=== PATIENT | female | born 1955 | race Caucasian/White ===

== ENCOUNTER 2016-08-03 22:54 | Emergency (ER) | payer OTHER ==
[~2016-08-03] VITALS: Ht 172.7 cm; Wt 60.8 kg
[~2016-08-03 22:54] MED LIST: AMOX-CLAV 875-1 EACH PO; AMOXICILLIN500 M3 PO; BACTRIM DS TAB1 EACH PO; BIOTIN1 M1 PO; KEFLEX500 M1 PO; MULTI-DAY VITA1 EACH PO; PANTOPRAZOLE SO40 M1 PO; PERCOCET 5-3251 EACH PO; TUMERIC PO
--- NOTE | 2016-08-03 23:42 | ED SKIN/ALLERGY COMPLAINT ---
History of Present Illness General Chief Complaint: Animal/Insect Bite Stated Complaint: PT HAS A BUG BITE ON HER BUTT AND INFECTED Source: patient Exam Limitations: no limitations Vital Signs & Intake/Output Vital Signs & Intake/Output Vital Signs Date Time Temp Pulse Resp B/P B/P Pulse O2 O2 Flow FiO2 Mean Ox Delivery Rate 08/03 2300 97.4 72 16 149/77 98 Room Air ED Intake and Output 08/04 0000 08/03 1200 Intake Total Output Total Balance Patient 134 lb Weight Allergies Coded Allergies: prednisone (Severe, ANAPHYLAXIS 08/22/15) Reconcile Medications Amoxicillin/Clavulanate Potass (Amox-Clav 875-125 MG Tablet) 1 EACH TABLET 875 MG PO Q12 CELLULITIS Biotin 1 MG TABLET 1 TAB PO DAILY SUPPLEMENT (Reported) Cephalexin (Keflex) 500 MG CAPSULE 1 CAP PO TID cellulitis Ibuprofen 600 MG TABLET 1 TAB PO TID PRN pain with food Multivitamin (Multi-Day Vitamins) 1 EACH TABLET 1 TAB PO DAILY SUPPLEMENT ( Reported) Oxycodone HCl/Acetaminophen (Percocet 5-325 MG Tablet) 1 EACH TABLET 1 TAB PO BID PAIN Pantoprazole Sodium 40 MG TABLET.DR 1 TAB PO DAILY GI (Reported) Sulfamethoxazole/Trimethoprim (Bactrim Ds Tablet) 800 MG-160 MG TABLET 1 TAB PO BID cellulitis/infection Triage Note: PT STATES THAT SATURDAY SHE STARTED WITH WHAT SHE THOUGHT WAS A BUG BITE TO HER R BUTTOCKS, STATES THAT IT WAS ITCHY, AND NOW STATES THAT SHE NOTED THAT ITS STILL ITCHY BUT IT RED AND HOT TO TOUCH NOW. PT NOTED WITH WHAT LOOKS LIKE SCRATCH SUE , AREA IS NOT RAISED Triage Nurses Notes Reviewed? yes HPI: 60 yo woman presents with redness, swelling, and pain at right gluteal region, getting worse over the past 2-3 days. She notes that, "I thought I had a bug bite... I scratched it... and then afterwards it felt red and tender to touch." She notes no fever, chills, difficulty with bowel movements. She is otherwise well. Past History Travel History Traveled to [place] past 21 day No Medical History Any Pertinent Medical History? see below for history Neurological: NONE EENT: NONE Cardiovascular: NONE Respiratory: bronchitis Gastrointestinal: ACID REFLUX Hepatic: NONE Renal: NONE Musculoskeletal: RUPTURED DISK Psychiatric: NONE Endocrine: NONE Blood Disorders: NONE Cancer(s): NONE COSTUMER ASSISTANT/Reproductive: NONE History of MRSA: No History of VRE: No History of CDIFF: No Surgical History Surgical History: appendectomy, spinal fusion Psychosocial History Who do you live with Family Services at Home None What is your primary language Faroese Tobacco Use: Never used ETOH Use: denies use Illicit Drug Use: denies illicit drug use Family History Family History, If Any: FATHER *No pertinent family history FH: myocardial infarction FH: prostate cancer Hx Contributory? No Review of Systems Review of Systems Constitutional: Reports: no symptoms. EENTM: Reports: no symptoms. Respiratory: Reports: no symptoms. Cardiovascular: Reports: no symptoms. GI: Reports: no symptoms. Genitourinary: Reports: no symptoms. Musculoskeletal: Reports: no symptoms. Skin: Reports: no symptoms. Neurological/Psychological: Reports: no symptoms. Hematologic/Endocrine: Reports: no symptoms. Immunologic/Allergic: Reports: no symptoms. All Other Systems: Reviewed and Negative Physical Exam Physical Exam General Appearance: well developed/nourished, mild distress Head: atraumatic Eyes: Bilateral: normal appearance. Ears, Nose, Throat: normal ENT inspection Neck: normal inspection, supple Respiratory: normal breath sounds Cardiovascular: regular rate/rhythm Gastrointestinal: soft, non-tender Back: normal inspection Extremities: normal inspection, normal range of motion, no edema Neurologic/Psych: awake, alert, oriented x 3, normal mood/affect Skin: left gluteal area with 2cm circular area of ulceration and 5cm circular area of erythema and tenderness to palpation. No sign of abscess. Progress Differential Diagnosis: abscess/cellulitis, allergic reaction Plan of Care: no sign of abscess will rx with keflex and bactrim close follow up advised. Departure Departure Disposition: HOME OR SELF CARE Condition: Stable Clinical Impression Primary Impression: Cellulitis and abscess of buttock Referrals: RACHEAL QUEZADA DO (PCP/Family) Departure Forms: Customer Survey General Discharge Information Prescriptions: Current Visit Scripts Cephalexin (Keflex) 1 CAP PO TID #28 CAP Sulfamethoxazole/Trimethoprim (Bactrim Ds Tablet) 1 TAB PO BID #14 TAB Ibuprofen 1 TAB PO TID PRN pain #30 TAB with food
[2016-08-03] MEDS ORDERED: IBUPROFEN600 M1 PO (23:56)
[2016-08-03] MEDS ORDERED: BACTRIM DS TAB1 EACH PO (23:56)
[2016-08-03] MEDS ORDERED: KEFLEX500 M1 PO (23:56)
[2016-08-04 00:14] VITALS: BP 145/74
== END 2016-08-04 00:15 ==
LOC: ERH 22:54
DX: L03.317 Cellulitis of buttock (principal); L02.31 Cutaneous abscess of buttock